=== PATIENT | female | born 1965 | race African-American/Black ===

== ENCOUNTER 2020-07-09 13:23 | Emergency (ER) | payer OTHER ==
[2020-07-09 13:46] VITALS: BP 130/79; PULSE 77; TEMP 98; BMI 33.3
== END 2020-07-09 14:29 | disposition home or self-care (01) ==
LOC: JER 13:23
DX: R09.81 Nasal congestion (principal); R53.82 Chronic fatigue, unspecified; Z20.822 Contact with and (suspected) exposure to COVID-19
CPT/HCPCS: 99283-25; C9803; U0003